=== PATIENT | male | born 1945 | race Caucasian/White ===

== ENCOUNTER 2017-07-16 13:50 | Emergency (ER) | payer OTHER, MEDICARE ==
[2017-07-16 14:03] VITALS: RESP 16; TEMP 97.5
[2017-07-16] MEDS ORDERED: KETOROLAC 30 MG/1 ML SDV IVP ONE (14:27)
[2017-07-16] MEDS ORDERED: CYCLOBENZAPRINE 10 MG TAB PO ONE (14:27)
[2017-07-16] MEDS ORDERED: LIDOCAINE 4%/MENTHOL 1% PATCH TD ONE (14:28)
--- NOTE | 2017-07-16 14:44 | EDPHY ---
H & P Smoking Status: Never smoked <Tanvir Peñaloza - Last Filed: 07/16/17 14:54> <Alverto Patel - Last Filed: 07/16/17 16:27> Time Seen by Provider: 07/16/17 14:12 HPI/ROS: HPI Neck pain. 71-year-old male by private vehicle with his . His is a former nurse. This patient has a history of chronic upper cervical pain. He had a CT scan back in September of 2016. This did not show any fracture, subluxation or dislocation. He reports that he has had ongoing neck pain which he reports is a 2 to 3/10. He has not had any associated neurological symptoms. No loss of sensation or weakness in his extremities. He reports that he woke up yesterday morning and the pain was worse and then progressively got much worse through the day. He was not able to sleep last night because of the pain and the pain has been constant in significant all day today. He again denies any current neurologic complaints. There is no history of trauma, although he is not sure if he injured his neck in his sleep somehow. His reports that she applied a lidocaine gel to the his posterior upper neck as well as gave the patient tramadol, 10 mg of Valium and some prednisone without any affect. The patient is requesting a repeat CT scan. ROS: Constitutional: No fever, no chills. No weakness. Eyes: No discharge. No changes in vision. ENT: No sore throat. No nasal congestion or rhinorrhea. Musculoskeletal: No back pain. As above. Denies extremity pain. Skin: No rashes. Neurological: No headache. No focal weakness or altered sensation. Past medical history: As above. 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 Social history: Here with his who is a nurse. Nonsmoker. No alcohol. Physical Exam: General Appearance: Alert, he appears uncomfortable but not in distress. He is in a soft cervical collar. This patient is responding to questions appropriately and in full sentences. This patient appears well-hydrated and well-nourished. No stridor. No voice changes. Head: Normocephalic atraumatic. Eyes: Pupils equal and round no pallor or injection. No lid edema, erythema or injection. Neck: Supple. He does not have any midline suboccipital, cervical, thoracic tenderness on palpation. No bony deformity or crepitus noted on palpation of his midline cervical spine. He has proximal cervical paraspinal tenderness on palpation which tracks from the base of his skull and is most intense in the C1 through C3 area. It then tracks down into the bilateral trapezius bodies. The associated soft tissues are unremarkable. He is neurologically intact in all myotomes in dermatomes of the bilateral upper extremities. Neurological: Motor sensory function is grossly intact. Cranial nerves are normal. Gait is normal. Skin: Warm and dry, no rashes. Musculoskeletal: Neck is supple and nontender. Extremities are symmetrical. All joints range without pain or impingement. Psychiatric: No agitation. No depression. Database: EKG: Imaging: CT of the cervical spine without contrast: Procedures: Emergency department course: Vital signs reviewed and are normal. I discussed pain med and treatment options. He does not have a contraindication to Toradol. No history of peptic ulcer disease or renal dysfunction. Normal creatinine verified from 2016. He will be given 30 mg of IV Toradol initially with 10 mg of oral Flexeril. He will be sent for CT scan without contrast of the cervical spine. 3:00 p.m., we are awaiting results of CT scan of cervical spine. Care turned over to Dr. Alverto Patel at this time. Differential Diagnosis: The differential diagnosis on this patient includes but is not limited to upper cervical strain. Fracture, subluxation, dislocation of the cervical spine, acute intervertebral disc herniation, acute radiculopathy, vertebral artery dissection unlikely. This represents a partial list of diagnoses considered. These considerations are based on history, physical exam, past history, reassessment and diagnostic testing. (Tanvir Peñaloza) Constitutional: Initial Vital Signs Temperature (C) 36.4 C 07/16/17 13:57 Heart Rate 92 07/16/17 13:57 Respiratory Rate 16 07/16/17 13:57 Blood Pressure 119/81 H 07/16/17 13:57 O2 Sat (%) 93 07/16/17 13:57 O2 Delivery Mode Room Air Allergies/Adverse Reactions: No Known Allergies Allergy (Verified 07/16/17 13:54) Home Medications: Medication Instructions Recorded Albuterol Hfa Anes Only [Proair 10/15/13 Hfa Icu (*)] Montelukast Sodium [Singulair 10 10/15/13 mg (RX)] Omeprazole Magnesium [Prilosec Otc] 10/15/13 predniSONE [predniSONE] 20 mg PO 10/15/13 Breo Ellipta 100-25 Mcg INH 07/16/17 Flomax 07/16/17 Hydrocodone/Acetaminophen 1 - 2 each PO Q4-6PRN PRN #10 07/16/17 [Hydrocodon-Acetaminophen 5-325] tablet Medical Decision Making <Tanvir Peñaloza - Last Filed: 07/16/17 14:54> - Diagnostics Imaging: Discussed imaging studies w/ banquet server on call Radiologist <Alverto Patel - Last Filed: 07/16/17 16:27> - Diagnostics Imaging Results: Imaging Impressions Cervical Spine CT 07/16/17 14:50 Impression: Multilevel degenerative disk and degenerative joint disease of the cervical spine. There could be a component of inflammatory or calcific arthropathy with chronic erosion to the spinous processes of C7-T1 and soft tissue calcification posterior to the facet arthropathy with anterior spondylolisthesis of C7 on T1. Mild reversal of the normal lordotic curvature centered over C5 and C6. Please see detailed description by level above. No evidence for acute fracture. Results discussed with Dr. Alverto Patel on 16 July 2017 at 1517 hours. Procedures: Procedure: Trigger-point injection Indication: Cervical muscle spasm. Line patient is prepped with Hibiclens prep. The trigger points were identified a the bilateral suboccipital paraspinal muscles. A 30 gauge needle was introduced. Aspiration with no blood. A total of 4 mL of 0.5% bupivacaine with 1% lidocaine was infiltrated bilaterally. Patient tolerated procedure well. There were no complications. Procedures performed by myself. (Alverto Patel) Other Provider: 1500 care assumed by me from Dr. Peñaloza pending CT scan of the neck. 1530 CT scan of the cervical spine shows some mild multi level degenerative changes, no amanuel of changes, no acute findings. 1540 after discussing further options patient is agree to proceed with trigger point injections. These were performed by me. Ice has also been applied. ( Alverto Patel) - Data Points Medications Given: Discontinued Medications Cyclobenzaprine HCl (Flexeril) 10 mg PO EDNOW ONE Stop: 03/22/18 14:28 Last Admin: 07/16/17 14:39 Dose: 10 mg Fentanyl (Sublimaze) 50 mcg IVP EDNOW ONE Stop: 07/16/17 15:55 Last Admin: 07/16/17 16:02 Dose: 50 mcg Ketorolac Tromethamine (Toradol) 30 mg IVP EDNOW ONE Stop: 07/16/17 14:28 Last Admin: 07/16/17 14:54 Dose: 30 mg Miscellaneous Medication (Icy Hot Lidocaine/Menthol 4%/1% Patch) 2 patch TD EDNOW ONE Stop: 07/16/17 14:29 Last Admin: 07/16/17 14:40 Dose: 2 patch Departure <Tanvir Peñaloza - Last Filed: 07/16/17 14:54> <Alverto Patel - Last Filed: 07/16/17 16:27> - Departure Disposition: Home, Routine, Self-Care Clinical Impression: Cervical pain Condition: Good Instructions: Neck Pain (ED) Additional Instructions: Take ibuprofen, 600 mg, 3 times a day. Apply ice for 15 min of every hour while awake. You may use an [id number] Lidoderm patch to be replaced every 24 hr. You may also take Vicodin every 6 hr as needed for breakthrough pain. Make sure to remain active. It is important to remain active and keep moving in order to improve. Follow up with Orthopedics in 3-4 days for further evaluation. Follow up with primary care physician in 3-4 days for physical therapy referral. Referrals: David Dale MD [Medical Doctor] - As per Instructions Prescriptions: Hydrocodone/Acetaminophen [Hydrocodon-Acetaminophen 5-325] 1 - 2 each PO Q4- 6PRN PRN #10 tablet PRN Reason: Pain, Severe
[2017-07-16] MEDS ORDERED: fentaNYL 100 MCG/2 ML INJ IVP ONE (15:54)
[2017-07-16 16:46] VITALS: BP 98/56; PULSE 76; O2SAT 92
== END 2017-07-16 16:30 | disposition home or self-care (01) ==
LOC: CED 13:50
DX: M54.2 Cervicalgia (principal); J45.909 Unspecified asthma, uncomplicated
CPT/HCPCS: 72125; 96374; 96375; 99285; J1885; J3010

== ENCOUNTER → 2017-12-14 | Outpatient (CLI) | payer OTHER, MEDICARE | LOC: CIMAGING 11:42 | PROVIDERS: ATTEND Internal Medicine | DX: J98.11 Atelectasis (principal); J45.909 Unspecified asthma, uncomplicated | CPT/HCPCS: 71046-PO ==

== ENCOUNTER → 2018-01-08 | Outpatient (CLI) | payer OTHER | LOC: CIMAGING 08:16 | PROVIDERS: ATTEND Internal Medicine | DX: Z13.6 Encounter for screening for cardiovascular disorders (principal) | CPT/HCPCS: 75571-PO ==